=== PATIENT | male | born 1965 | race Caucasian/White ===

== ENCOUNTER 2021-10-10 12:09 | Emergency (ER) | payer OTHER ==
[~2021-10-10] VITALS: Ht 185.4 cm; Wt 169.0 kg
[2021-10-10] MEDS ORDERED: LISI-649 PO (12:21)
[2021-10-10] MEDS ORDERED: BUPR-102 PO (12:21)
[2021-10-10] MEDS ORDERED: DIXL5 PO (12:21)
[2021-10-10] MEDS ORDERED: TOBR5DRO2 OP (12:21)
[2021-10-10] MEDS ORDERED: IBUP-2029 PO (12:21)
[2021-10-10] MEDS ORDERED: DICL50TA9 PO (12:21)
[2021-10-10] MEDS ORDERED: ATOR20TA65 PO (12:21)
[2021-10-10] MEDS ORDERED: TOPXL5 PO (12:21)
[2021-10-10] MEDS ORDERED: GABA300C PO (12:21)
[2021-10-10] MEDS ORDERED: KETOROLAC 30MG/ML VIAL IM ONE (12:45)
[2021-10-10 14:03] VITALS: BP 147/93
[2021-10-10] MEDS ORDERED: TETRACAINE 0.5% OPHTH DROPS 4ML BOTHEYE ONE (14:30)
[2021-10-10] MEDS ORDERED: IBUP-2028 MT (14:54)
== END 2021-10-10 15:38 | disposition home or self-care (01) ==
LOC: ER 12:09
DX: S86.912A Strain of unspecified muscle(s) and tendon(s) at lower leg level, left leg, initial encounter (principal); M17.12 Unilateral primary osteoarthritis, left knee; M71.22 Synovial cyst of popliteal space [Baker], left knee; I10 Essential (primary) hypertension; E78.00 Pure hypercholesterolemia, unspecified; F31.9 Bipolar disorder, unspecified; Z98.890 Other specified postprocedural states; E66.01 Morbid (severe) obesity due to excess calories; Z68.42 Body mass index [BMI] 45.0-49.9, adult; W06.XXXA Fall from bed, initial encounter; Y93.89 Activity, other specified; Y92.013 Bedroom of single-family (private) house as the place of occurrence of the external cause
CPT/HCPCS: 73560; 93971; 96372; 99284; J1885

== ENCOUNTER 2023-02-27 09:50 | Emergency (ER) | payer OTHER ==
[~2023-02-27] VITALS: Ht 177.8 cm; Wt 194.7 kg
[~2023-02-27 09:50] MED LIST: ATOR20TA65 PO; BUPR-102 PO; DICL50TA9 PO; DIXL5 PO; GABA300C PO; IBUP-2028 MT; IBUP-2029 PO; LISI-649 PO; TOBR5DRO2 OP; TOPXL5 PO
[2023-02-27 10:33] LABS: BASOPHILS % 0.6 % (0.0-2.0); HEMATOCRIT. 34.1 % (42.0-52.0); HEMOGLOBIN. 11.4 g/dL (14.0-18.0); LYMPHOCYTES % 9.2 % (20.0-50.0); MEAN CORPUSCULAR VOLUME 80.6 fL (80.0-94.0); MEAN PLATELET VOLUME 8.4 fl (7.4-10.4); MONOCYTES % 7.4 % (2.0-8.0); NEUTROPHILS % 80.8 % (40.0-76.0); PLATELET 363 x1000/uL (130-400); RED BLOOD CELL COUNT 4.23 mill/uL (4.7-6.1); RED CELL DISTRIBUTION WIDTH 17.7 % (11.6-14.6)
[2023-02-27 10:56] LABS: CHLORIDE 102 mEq/L (98-107)
[2023-02-27] MEDS ORDERED: CEFTRIAXONE 1GM PREMIX 50 ML IV ONE (11:45)
[2023-02-27] MEDS ORDERED: VANCOMYCIN 1G PREMIX 200 ML IV SCH (11:45)
[2023-02-27 22:01] VITALS: BP 143/80
== END 2023-02-27 22:32 | disposition short-term general hospital (02) ==
LOC: ER 09:50
DX: R60.0 Localized edema (principal); E66.01 Morbid (severe) obesity due to excess calories; F31.9 Bipolar disorder, unspecified; E78.00 Pure hypercholesterolemia, unspecified; I10 Essential (primary) hypertension; Z79.899 Other long term (current) drug therapy
CPT/HCPCS: 36415; 71045; 80053; 83880; 84484; 85025; 87040; 93005; 93970; 96365; 96366; 96367; 99285; J0696; J3370